=== PATIENT | male | born 1960 | race Caucasian/White ===

== ENCOUNTER 2021-03-31 13:33 | Emergency (ER) | payer BC, OTHER ==
[~2021-03-31] VITALS: Ht 182.9 cm; Wt 81.7 kg
[2021-03-31 14:05] LABS: BASOPHILS 0.8 % (0.0-2.0); EOSINOPHILS 0.3 % (0.0-3.0); HEMATOCRIT 43.4 % (42.0-52.0); HEMOGLOBIN 14.5 gm/dL (14.0-18.0); LYMPHOCYTES 21.9 % (24.0-44.0); MCH 32.5 pg (26.0-34.0); MCHC 33.5 g/dL (28.0-37.0); MONOCYTES 4.6 % (1.0-8.0); PLATELET COUNT 283 thou/uL (150-400); POLYS 72.4 % (36.0-66.0); RBC 4.47 mil/uL (4.50-6.00); RDW 12.7 % (10.5-14.5)
[2021-03-31 14:09] LABS: URINE BILIRUBIN NEGATIVE (Negative); URINE BLOOD NEGATIVE (Negative); URINE CLARITY CLEAR; URINE COLOR YELLOW; URINE GLUCOSE-RANDOM* NEGATIVE (Negative); URINE KETONES NEGATIVE (Negative); URINE LEUKOCYTES-REFLEX NEGATIVE (Negative); URINE NITRITE-REFLEX NEGATIVE (Negative); URINE PROTEIN (DIPSTICK) NEGATIVE (Negative); URINE UROBILINOGEN 0.2 E.U./dl (0.2-1.0)
[2021-03-31 14:24] LABS: CALCIUM 9.1 mg/dL (8.5-10.1); POTASSIUM 4.3 mmol/L (3.5-5.1)
[2021-03-31 14:28] LABS: ALBUMIN 4.6 g/dL (3.4-5.0); TOTAL BILIRUBIN 0.4 mg/dL (0.2-1.0)
--- NOTE | 2021-03-31 15:01 | EKG ---
[address] [address] ELECTROCARDIOGRAM REPORT Name: DANNY GARCIA Room #: REG REKHA Kauffman#: [id number] Admission: 03/31/21 Attend Phys: Discharge: Date of : 62 Report #: [id number] [facility] ED Test Date: 2021-03-31 Test Time: 13:40:52 Pat Name: DANNY GARCIA Department: Room: Gender: M Sr. Payroll Manager: KHANG : 1960 Requested By: Dick Blake Order Number: [id number] MD: Rupert Holley Measurements Intervals [place] Rate: 77 P: 25 CO: 161 QRS: 39 QRSD: 90 T: 31 QT: 384 QTc: 435 Interpretive Statements Sinus rhythm Probable left atrial enlargement No previous ECG available for comparison Electronically Signed On 03-31-2021 15:01:26 CDT by Rupert Holley [email or web address] <ELECTRONICALLY SIGNED> By: Rupert Holley MD, [facility] 03/31/21 1501 1340 1340 Rupert Holley MD, FACC /EPI
[2021-03-31 16:31] VITALS: BP 114/66
== END 2021-03-31 16:31 | disposition home or self-care (01) ==
LOC: ER 13:33
PROVIDERS: Emergency Medicine
DX: R41.0 Disorientation, unspecified (principal); Z20.822 Contact with and (suspected) exposure to COVID-19; F17.210 Nicotine dependence, cigarettes, uncomplicated